=== PATIENT | female | born 1990 | race Caucasian/White ===

== ENCOUNTER 2019-07-31 16:22 | Outpatient (RCR) | payer BC, SELFPAY ==
[2019-07-31 17:32] LABS: Basophils Percent Auto 0.4 % (0.2-1.2); Eosinophils Absolute Auto 0.3 K/mm3 (0-0.3); Eosinophils Percent Auto 2.8 % (0-4.4); Hematocrit 41.3 % (37.0-47.0); Hemoglobin 13.8 g/dL (12.0-15.0); Immature Granulocyte Absolute 0.02 K/mm3 (0.00-0.031); Immature Granulocyte Percent A 0.2 % (0-0.5); Lymphocytes Absolute Auto 1.92 K/mm3 (0.9-3.2); Lymphocytes Percent Auto 21.6 % (18.3-44.2); Mean Corpuscular HGB Conc 33.4 g/dl (32-36); Mean Corpuscular Hemoglobin 30.2 pg (26-34); Mean Corpuscular Volume 90.4 fl (80-100); Mean Platelet Volume 10.2 fl (7.4-10.4); Monocytes Absolute Auto 0.6 K/mm3 (0.1-0.6); Monocytes Percent Auto 6.4 % (2.6-8.5); Neutrophils Absolute Auto 6.1 K/mm3 (1.3-6.7); Neutrophils Percent Auto 68.6 % (45.5-73.1); Platelet Count Result 288 k/mm3 (150-375); Red Blood Count 4.57 M/mm3 (4.2-5.4); Red Cell Distribution Width 12.3 % (11.5-14.5); White Blood Count 8.9 K/mm3 (4.5-10.0)
[2019-07-31 18:04] LABS: Beta HCG Quantitative < 2.39 mIU/ML
[2019-07-31 18:18] LABS: Thyroid Stimulating Hormone 0.849 uIU/mL (0.465-4.680)
[2019-08-03 01:53] LABS: Anti Cardio Antibody IgM <12 MPL (<=12); Anti Cardiolipin Antibody IgA <11 APL (<=11); Anti Cardiolipin Antibody IgG <14 GPL (<=14)
[2019-08-06 03:58] LABS: Hex Phase Conf Chg Test Yes; Lupus dRVVT 1:1 Mix Interpreta Not Indicated; Lupus dRVVT Screen 34 sec (<=45); LupusdRVVT 1:1Mix Int Chg Test Yes; PTT-LA Screen 35 sec (<=40)
[2019-08-07 11:56] LABS: Anti Nuclear Antibody Pattern Nuclear, Speckled
== END 2019-10-29 23:59 | disposition home or self-care (01) ==
LOC: ANHLAB 16:22
PROVIDERS: Visit Provider Obstetrics & Gynecology
DX: N96 Recurrent pregnancy loss (principal)
CPT/HCPCS: 36415; 81240; 81241; 83036; 84443; 84702; 85025; 85303; 85306; 85598; 85613; 85730; 86038; 86039; 86147; 86850; 86900; 86901

== ENCOUNTER 2020-04-09 10:21 | Outpatient (CLI) | payer BC, SELFPAY ==
[2020-04-09 12:27] LABS: Hematocrit 39.7 % (37.0-47.0); Hemoglobin 13.7 g/dL (12.0-15.0); Mean Corpuscular HGB Conc 34.5 g/dl (32-36); Mean Corpuscular Hemoglobin 30.7 pg (26-34); Mean Platelet Volume 9.5 fl (7.4-10.4); Platelet Count Result 322 k/mm3 (150-375); Red Blood Count 4.46 M/mm3 (4.2-5.4); White Blood Count 9.8 K/mm3 (4.5-10.0)
[2020-04-09 12:45] LABS: Glucose 1 Hour PP 50gm Dose 107 mg/dL
[2020-04-09 13:17] LABS: HIV 1/2 Ab P24 Ag Result Negative (Negative)
[2020-04-09 13:48] LABS: Hepatitis B Surface Antigen Negative (Negative)
[2020-04-10 11:20] LABS: Rapid Plasma Reagin Non-Reactive (NonReactive)
[2020-04-12 18:17] LABS: CMV IgG Antibody <0.60 U/mL (<0.60)
[2020-04-13 16:05] LABS: Varicella IgM Antibody <=0.90 (<=0.90)
== END 2020-04-09 10:22 | disposition home or self-care (01) ==
LOC: ANHLAB 10:26
PROVIDERS: PCP Family Medicine; Visit Provider Obstetrics & Gynecology
DX: N92.5 Other specified irregular menstruation (principal)
CPT/HCPCS: 36415; 82947; 84702; 85027; 86592; 86644; 86703; 86747; 86762; 86787; 86850; 86900; 86901; 87086; 87088; 87340; G0432

== ENCOUNTER 2020-08-15 21:12 | Observation (INO) | payer BC, SELFPAY ==
--- NOTE | 2020-08-15 21:12 | OBADM ---
This patient, Brooke Gonzalez, admitted to the OB room OB Post 116 for observation. Patient/family oriented to hospital policies and general routines including ID bracelet, bed and alarms, visiting hours, pain management, procedures, bathroom and other care routines, personal items, smoking policy, room service/diet, and visiting hours. Patient/Family are encouraged to report perceived risks to care and to ask questions if they do not understand what they are told or what they should do.
--- NOTE | 2020-08-15 21:30 | PC.NURSE ---
Pt states she has been feeling contractions since 1729. States contractions were initially appox 4 per house and has felt 7 last hour. Had preterml labor with two pregnancies with delivery at 36 weeks.
--- NOTE | 2020-08-15 21:30 | PC.NURSE ---
SEE OBIX DOCUMENTATION
[2020-08-15 21:34] VITALS: BP 116/78; PULSE 88
[2020-08-15 21:45] VITALS: BP 115/74; PULSE 89
[2020-08-15] MEDS: LACTATED RINGERS 1,000 ML 999 ML IV CONT (22:03)
[2020-08-15 22:15] VITALS: BP 129/72; PULSE 103
[2020-08-15 22:31] VITALS: BP 116/59; PULSE 95
[2020-08-15 22:40] LABS: Add Urine Microscopic? YES; Appearance Urine Cloudy (Clear); Bacteria Urine Trace /hpf; Bilirubin Urine Negative (Negative); Blood Urine Negative (Negative); Calcium Oxalate Crystals Urine Present /hpf; Color Urine Yellow (Yellow); Glucose Urine UA Negative (Negative); Ketones Urine Negative (Negative); Leukocyte Esterase Ur 1+ LEU/UL (NEGATIVE); Mucus Urine Rare /lpf; Nitrate Urine Negative (Negative); Protein Urine 1+ mg/dL (Negative); Specific Grav Ur 1.019 (1.001-1.035); Squamous Epithelial Cell Urine Many /hpf (Few)
[2020-08-15 22:46] VITALS: BP 111/68; PULSE 95
[2020-08-15 23:01] VITALS: BP 109/65; PULSE 89
[2020-08-15 23:20] VITALS: BMI 33.0
[2020-08-15 23:23] LABS: Fetal Fibronectin Negative
--- NOTE | 2020-08-16 00:10 | PC.NURSE ---
Pt state she is no longer feeling contractions. APpears comfortable. FFN is negative. Dr. Groves called with assessment. Will discharge home.
--- NOTE | 2020-08-20 17:56 | P.PNOB_ITS ---
OB - Triage/Final Diagnosis Visit Information Comments/Additional reasons for admission: I have assessed the risk for this patient, Brooke Gonzalez, and determined that she would benefit from observation care. Evaluation Laboratory results: Laboratory Tests 08/15/20 08/15/20 22:13 22:14 Urine Color Yellow Urine Appearance Cloudy H Urine pH 6.0 Ur Specific [place] 1.019 Urine Protein 1+ H Urine Glucose (UA) Negative Urine Ketones Negative Ur Blood (Man) Negative Urine Nitrate Negative Urine Bilirubin Negative Urine Urobilinogen 2.0 H Ur Leukocyte Esterase 1+ H Urine RBC 6-10 H Urine WBC 7-9 H Ur Squamous Epith Cells Many H Calcium Oxalate Crystal Present Urine Bacteria Trace Hyaline Casts 1-2 Urine Mucus Rare Fibronectin Negative Final Diagnosis (1) uterine contractions: Code(s): O47.9 - False labor, unspecified Status: Acute
== END 2020-08-15 23:50 | disposition home or self-care (01) ==
PROVIDERS: Admitting Provider Obstetrics & Gynecology; PCP Family Medicine; Visit Provider Obstetrics & Gynecology
DX: O47.03 False labor before 37 completed weeks of gestation, third trimester (principal); Z3A.29 29 weeks gestation of pregnancy
CPT/HCPCS: 81001; 82731; 87086; 87088; G0378; G0379; J7120

== ENCOUNTER 2020-08-20 09:25 | Outpatient (RCR) | payer BC, SELFPAY ==
[2020-08-20 10:54] LABS: Hematocrit 33.3 % (37.0-47.0); Hemoglobin 11.2 g/dL (12.0-15.0)
[2020-08-20 11:07] LABS: Glucose 1 Hour PP 50gm Dose 117 mg/dL
[2020-08-20 11:49] LABS: HIV 1/2 Ab P24 Ag Result Negative (Negative)
[2020-08-22] MEDS: RHO(D) IMMUNE GLOBULIN 300 MCG SYRINGE IM (17:41)
== END 2020-11-18 23:59 | disposition home or self-care (01) ==
LOC: ANHLAB 09:25
PROVIDERS: PCP Family Medicine; Visit Provider Obstetrics & Gynecology
DX: Z11.4 Encounter for screening for human immunodeficiency virus [HIV] (principal); Z29.13 Encounter for prophylactic Rho(D) immune globulin; O36.0120 Maternal care for anti-D [Rh] antibodies, second trimester, not applicable or unspecified; Z3A.00 Weeks of gestation of pregnancy not specified
CPT/HCPCS: 36415; 82947; 85014; 85018; 85461; 86703; 90384; 96372; G0432; J2790

== ENCOUNTER 2020-09-12 21:55 | Observation (INO) | payer BC, SELFPAY ==
[2020-09-12 22:07] VITALS: BP 121/78; PULSE 90
[2020-09-12 22:21] VITALS: TEMP 36.4
[2020-09-12 22:48] LABS: Add Urine Microscopic? YES; Appearance Urine Cloudy (Clear); Bacteria Urine Trace /hpf; Bilirubin Urine Negative (Negative); Calcium Oxalate Crystals Urine Many /hpf; Color Urine Yellow (Yellow); Glucose Urine UA Negative (Negative); Ketones Urine Negative (Negative); Leukocyte Esterase Ur 1+ LEU/UL (Negative); Mucus Urine Few /lpf; Nitrate Urine Negative (Negative); Protein Urine 1+ mg/dL (Negative); Specific Grav Ur 1.024 (1.001-1.035); Squamous Epithelial Cell Urine Many /hpf (Few)
[2020-09-12] MEDS: NIFEdipine 10 MG CAPSULE 20 MG PO (22:52)
[2020-09-12 22:54] LABS: Basophils Absolute Auto 0.1 K/mm3 (0.0-0.1); Basophils Percent Auto 0.4 % (0.2-1.2); Eosinophils Absolute Auto 0.3 K/mm3 (0-0.3); Hematocrit 30.2 % (37.0-47.0); Hemoglobin 10.6 g/dL (12.0-15.0); Immature Granulocyte Percent A 2.1 % (0-0.5); Lymphocytes Absolute Auto 2.44 K/mm3 (0.9-3.2); Lymphocytes Percent Auto 17.2 % (18.3-44.2); Mean Corpuscular HGB Conc 35.1 g/dl (32-36); Mean Corpuscular Hemoglobin 31.7 pg (26-34); Mean Corpuscular Volume 90.4 fl (80-100); Mean Platelet Volume 10.1 fl (7.4-10.4); Monocytes Percent Auto 7.2 % (2.6-8.5); Neutrophils Absolute Auto 10.1 K/mm3 (1.3-6.7); Neutrophils Percent Auto 71.1 % (45.5-73.1); Platelet Count Result 242 k/mm3 (150-375); Red Blood Count 3.34 M/mm3 (4.2-5.4); Red Cell Distribution Width 12.7 % (11.5-14.5); White Blood Count 14.2 K/mm3 (4.5-10.0)
[2020-09-12] MEDS: LACTATED RINGERS 1,000 ML 999 ML IV CONT (22:54)
[2020-09-12] MEDS: BETAMETHASONE SOD PHOS/ACETATE 30 MG/5 ML VIAL 12 MG IM (22:55)
[2020-09-12 22:58] LABS: Blood Urine Negative (Negative)
[2020-09-12 23:02] VITALS: BP 112/70; PULSE 82
[2020-09-12 23:11] LABS: Alanine Aminotransferase 10 U/L (4-35); Albumin Level 3.2 g/dL (3.5-5.1); Alkaline Phosphatase 137 U/L (38-126); Anion Gap 6 mmol/L (8-16); Aspartate Amino Transferase 20 U/L (14-36); Bilirubin,Total 0.1 mg/dL (0.2-1.3); Blood Urea Nitrogen 7 mg/dL (7-17); Calcium 8.8 mg/dL (8.4-10.2); Carbon Dioxide 23 mmol/L (22-30); Chloride 107 mmol/L (98-107); Estimated Glomerular Filt Rate > 60; Glucose 107 mg/dL (65-105); Potassium 3.4 mmol/L (3.4-5.0); Sodium 136 mmol/L (137-145)
[2020-09-12 23:21] VITALS: BMI 33.8
--- NOTE | 2020-09-12 23:21 | LDADM ---
This patient, Brooke Gonzalez, was admitted to OB Post 117 on 09/12/20 at 21:55. Plans for labor, pain management and were discussed with patient. Patient/family oriented to hospital policies and general routines including ID bracelet, bed and alarms, visiting hours, pain management, procedures, bathroom and other care routines, personal items, smoking policy, room service/diet and guest tray routines, infant security routines, and visiting hours. Patient/Family are encouraged to report perceived risks to care and to ask questions if they do not understand what they are told or what they should do. See OBIX for further documentation.
[2020-09-12 23:30] VITALS: BP 111/62; PULSE 96
[2020-09-12 23:45] VITALS: BP 104/57; PULSE 90
[2020-09-13] VITALS (35 sets, daily range): BP systolic 94–115; BP diastolic 50–71; PULSE 75–119; TEMP 36.4; O2SAT 95–100
[2020-09-13] MEDS: FAMOTIDINE 20 MG/2 ML VIAL IV PUSH ×2 (01:52→22:40)
[2020-09-13] MEDS: ACETAMINOPHEN 500 MG TABLET 1000 MG PO (01:52)
[2020-09-13] MEDS: TERBUTALINE SULFATE 1 MG/ML VIAL 0.25 MG SUB-Q (02:57)
[2020-09-13] MEDS: NIFEdipine 10 MG CAPSULE PO ×4 (04:46→22:41)
[2020-09-13] MEDS: LACTATED RINGERS 1,000 ML 125 ML IV CONT ×3 (08:29→16:35)
--- NOTE | 2020-09-13 08:51 | PM.IMHP ---
H&P: HPI History of Present Illness Date/Time: 09/13/20 08:51 30yo at 33w1d initially presented to L&D with regular contractions. She was noted to be rhianna every 3-5 minutes. Was started on nifedipine for tocolysis, given terbutaline, and betamethasone. This morning she states that she is feeling that her contractions are less frequent and less intense. Throughout the night, her contractions were decreased and was able to sleep. She does feel like her contractions are more noticeable now and feels like they are coming back. Chief Complaint: contractions [facility] Surgical History Surgical History (Updated 09/13/20 @ 09:01 by Fartun Pastor DO) H/O section H/O dilation and curettage Meds Home Medications and Allergies Home Medications Medication Instructions Recorded Confirmed Type aspirin 325 mg PO DAILY 08/15/20 08/15/20 History Allergies Allergy/AdvReac Type Severity Reaction Status Date / Time No Known Allergies Allergy Unverified 09/27/17 13:28 Vital Signs Vital Signs - 24 hr 09/12/20 22:07 09/12/20 22:21 09/12/20 23:02 Temperature 36.4 C L Pulse Rate 90 82 Blood Pressure 121/78 112/70 Pulse Oximetry 09/12/20 23:30 09/12/20 23:45 09/13/20 00:00 Temperature 36.4 C L Pulse Rate 96 90 87 Blood Pressure 111/62 104/57 L 101/56 L Pulse Oximetry 09/13/20 00:15 09/13/20 00:30 09/13/20 01:21 Temperature Pulse Rate 90 80 84 Blood Pressure 112/66 106/65 110/71 Pulse Oximetry 09/13/20 01:30 09/13/20 02:00 09/13/20 02:30 Temperature Pulse Rate 78 82 76 Blood Pressure 112/62 105/59 L 110/65 Pulse Oximetry 09/13/20 02:58 09/13/20 03:01 09/13/20 03:06 Temperature Pulse Rate 84 Blood Pressure 104/62 Pulse Oximetry 98 98 09/13/20 03:11 09/13/20 03:16 09/13/20 03:21 Temperature Pulse Rate Blood Pressure Pulse Oximetry 97 96 96 09/13/20 03:26 09/13/20 03:30 09/13/20 03:31 Temperature Pulse Rate 115 H Blood Pressure 94/50 L Pulse Oximetry 96 96 09/13/20 03:36 09/13/20 03:41 09/13/20 03:46 Temperature Pulse Rate Blood Pressure Pulse Oximetry 97 95 95 09/13/20 03:51 09/13/20 03:56 09/13/20 04:00 Temperature Pulse Rate 89 Blood Pressure 103/56 L Pulse Oximetry 95 96 09/13/20 04:01 09/13/20 04:06 09/13/20 04:11 Temperature Pulse Rate Blood Pressure Pulse Oximetry 95 96 96 09/13/20 04:16 09/13/20 04:21 09/13/20 04:26 Temperature Pulse Rate Blood Pressure Pulse Oximetry 95 96 96 09/13/20 04:30 09/13/20 04:31 09/13/20 04:36 Temperature Pulse Rate 110 H Blood Pressure 106/66 Pulse Oximetry 96 100 09/13/20 04:41 09/13/20 04:46 09/13/20 04:51 Temperature Pulse Rate Blood Pressure Pulse Oximetry 97 99 99 Exam Const: General: cooperative, healthy appearing and comfortable Resp: Effort & Inspection: normal respiratory effort Cardio: Rate: regular rate : Manual OB Exam: dilated 1 cm, effaced 50% and station high Neuro: General: oriented to person, oriented to place and oriented to time Cognition (Neuro): normal cognition Speech: normal speech Psych: Appearance: grossly normal Mental Status: mental status grossly normal Speech and movement: Normal speech and movement present Affect: normal affect Attitude: cooperative Thought content: Yes Normal thought content present Insight: Good insight present (Psych) Judgement: Good judgement present (Psych) H&P: Results Labs Labs: Short CBC 09/12/20 Range/Units 22:48 WBC 14.2 H (4.5-10.0) K/mm3 Hgb 10.6 L (12.0-15.0) g/dL Hct 30.2 L (37.0-47.0) % Plt Count 242 (150-375) k/mm3 BMP 09/12/20 22:48 Sodium 136 L Potassium 3.4 Chloride 107 Carbon Dioxide 23 BUN 7 Creatinine 0.60 L Glucose 107 H Calcium 8.8 Liver Function 09/12/20 Range/Units 22:48 Total Bilirubin 0.1 L (0.2-1.3) mg/dL AST 20 (14-36)
--- NOTE | 2020-09-13 09:04 | WPDHPUPDATE1 ---
History and Physical Update Update Date/Time: 09/13/20 09:04 History and Physical has been reviewed, including an updated exam of the patient. There are NO changes in the patient's condition. Risks, benefits, and alternatives have been discussed and questions answered. Patient agrees to proceed with procedure.
[2020-09-13] MEDS: BETAMETHASONE SOD PHOS/ACETATE 30 MG/5 ML VIAL 12 MG IM (22:42)
--- NOTE | 2020-09-14 08:40 | PM.OBTRLD ---
OB - Triage/Final Diagnosis Visit Information Comments/Additional reasons for admission: I have assessed the risk for this patient, Brooke Gonzalez, and determined that she would benefit from observation care. Evaluation Laboratory results: Laboratory Tests 09/12/20 09/12/20 09/12/20 22:29 22:48 22:48 WBC 14.2 H RBC 3.34 L Hgb 10.6 L Hct 30.2 L MCV 90.4 MCH 31.7 MCHC 35.1 RDW 12.7 Plt Count 242 MPV 10.1 Immature Gran % (Auto) 2.1 H Neut % (Auto) 71.1 Lymph % (Auto) 17.2 L [place] % (Auto) 7.2 Eos % (Auto) 2.0 Baso % (Auto) 0.4 Lymph # (Auto) 2.44 [place] # (Auto) 1.0 H Eos # (Auto) 0.3 Baso # (Auto) 0.1 Abs Immat Gran (auto) 0.30 H Absolute Neuts (auto) 10.1 H Absolute Nucleated RBC 0.0 Nucleated RBC % 0.0 Sodium 136 L Potassium 3.4 Chloride 107 Carbon Dioxide 23 Anion Gap 6 L BUN 7 Creatinine 0.60 L Estim Creat Clear Calc Not Reportable Estimated GFR > 60 Glucose 107 H Calcium 8.8 Total Bilirubin 0.1 L AST 20 ALT 10 Alkaline Phosphatase 137 H Total Protein 7.0 Albumin 3.2 L Urine Color Yellow Urine Appearance Cloudy H Urine pH 6.0 Ur Specific [place] 1.024 Urine Protein 1+ H Urine Glucose (UA) Negative Urine Ketones Negative Ur Blood (Man) Negative Urine Nitrate Negative Urine Bilirubin Negative Urine Urobilinogen 4.0 H Leukocyte Esterase Rfl 1+ H Urine RBC 6-10 H Urine WBC 10-15 H Ur Squamous Epith Cells Many H Calcium Oxalate Crystal Many Urine Bacteria Trace Urine Mucus Few H Vital signs: Vital Signs - 24 hr 09/13/20 16:40 Pulse Rate 94 Blood Pressure 115/66 Final Diagnosis (1) uterine contractions: Code(s): O47.9 - False labor, unspecified Status: Acute
== END 2020-09-13 22:55 | disposition home or self-care (01) ==
PROVIDERS: Admitting Provider Obstetrics & Gynecology; PCP Family Medicine; Visit Provider Obstetrics & Gynecology
DX: O47.03 False labor before 37 completed weeks of gestation, third trimester (principal); Z3A.33 33 weeks gestation of pregnancy
CPT/HCPCS: 36415; 80053; 81001; 85025; 87086; 87088; 96361; 96372; 96374; 96376; A9270; G0378; G0379; J0702; J3105; J7120

== ENCOUNTER 2020-09-25 22:31 | Observation (INO) | payer BC, SELFPAY ==
[2020-09-25 20:15] VITALS: BMI 34.0
--- NOTE | 2020-09-25 20:45 | PC.NURSE ---
HX PTL with this . States contractions since 1800. Rated as 5 on pain scale. Abdomen palpates soft. Denies any other symptoms. Dr. Pastor notified at 2039. Will give Terbutaline.
[2020-09-25] MEDS: TERBUTALINE SULFATE 1 MG/ML VIAL 0.25 MG SUB-Q (21:05)
--- NOTE | 2020-09-25 21:59 | OBADM ---
This patient, Brooke Gonzalez, admitted to the OB room for observation. Patient/family oriented to hospital policies and general routines including ID bracelet, bed and alarms, visiting hours, pain management, procedures, bathroom and other care routines, personal items, smoking policy, room service/diet, and visiting hours. Patient/Family are encouraged to report perceived risks to care and to ask questions if they do not understand what they are told or what they should do.
--- NOTE | 2020-09-25 22:30 | PC.NURSE ---
SEE OBIX DOCUMENTATION
--- NOTE | 2020-09-26 18:30 | PM.OBTRLD ---
OB - Triage/Final Diagnosis Visit Information Comments/Additional reasons for admission: I have assessed the risk for this patient, Brooke Gonzalez, and determined that she would benefit from observation care. Final Diagnosis (1) False labor: Code(s): O47.9 - False labor, unspecified Status: Acute
== END 2020-09-25 22:47 | disposition home or self-care (01) ==
LOC: ANHOBPP 22:31
PROVIDERS: Admitting Provider Obstetrics & Gynecology; PCP Family Medicine; Visit Provider Obstetrics & Gynecology
DX: O47.9 False labor, unspecified (principal); Z3A.00 Weeks of gestation of pregnancy not specified
CPT/HCPCS: 96372; 99199; J3105

== ENCOUNTER 2020-10-05 05:51 | Observation (INO) | payer BC, SELFPAY ==
[2020-10-05 06:41] VITALS: BMI 34.2
--- NOTE | 2020-10-05 06:41 | OBADM ---
This patient, Brooke Gonzalez, admitted to the OB room OB Post 115 for observation. Patient/family oriented to hospital policies and general routines including ID bracelet, bed and alarms, visiting hours, pain management, procedures, bathroom and other care routines, personal items, smoking policy, room service/diet, and visiting hours. Patient/Family are encouraged to report perceived risks to care and to ask questions if they do not understand what they are told or what they should do.
[2020-10-05 06:45] VITALS: BP 118/98; PULSE 82
[2020-10-05 07:16] VITALS: BP 126/67; PULSE 83
[2020-10-05] MEDS: LACTATED RINGERS 1,000 ML 999 ML IV CONT (07:18)
[2020-10-05 07:31] VITALS: BP 123/76; PULSE 79
[2020-10-05 07:46] VITALS: BP 119/79; PULSE 78
[2020-10-05] MEDS: LACTATED RINGERS 1,000 ML 150 ML IV CONT (08:20)
--- NOTE | 2020-10-07 07:21 | PM.OBTRLD ---
OB - Triage/Final Diagnosis Visit Information Reason for evaluation: threatened labor Comments/Additional reasons for admission: I have assessed the risk for this patient, Brooke Gonzalez, and determined that she would benefit from observation care.
== END 2020-10-05 10:55 | disposition home or self-care (01) ==
PROVIDERS: Admitting Provider Obstetrics & Gynecology; PCP Family Medicine; Visit Provider Obstetrics & Gynecology
DX: O47.03 False labor before 37 completed weeks of gestation, third trimester (principal); Z3A.36 36 weeks gestation of pregnancy
CPT/HCPCS: 96360; G0378; G0379; J7120

== ENCOUNTER 2020-10-08 15:30 | Outpatient (CLI) | payer BC, SELFPAY ==
[2020-10-08 16:30] VITALS: BP 114/69; PULSE 104
--- NOTE | 2020-10-08 16:44 | PC.NURSE ---
1550: ROM+ performed, negative result sve performed FT/thick/high. dr smith notified (1620) of reactive tracing, sve, rom+. may dc to home. labor precautions given, voiced understanding.
== END 2020-10-08 17:30 | disposition home or self-care (01) ==
LOC: ANHOBOP 16:26 → ANHLDR 16:26
PROVIDERS: PCP Family Medicine; Visit Provider Obstetrics & Gynecology
DX: O42.90 Premature rupture of membranes, unspecified as to length of time between rupture and onset of labor, unspecified weeks of gestation (principal); Z3A.00 Weeks of gestation of pregnancy not specified
CPT/HCPCS: 59025; 99199

== ENCOUNTER 2020-10-14 05:07 | Inpatient (IN) | payer BC, SELFPAY ==
[2020-10-14] VITALS (65 sets, daily range): BP systolic 74–129; BP diastolic 32–104; PULSE 54–299; RESP 16–18; TEMP 36.1–36.8; O2SAT 97–100; BMI 34.7; BMI 34.9
--- NOTE | 2020-10-14 05:55 | LDADM ---
This patient, Brooke Gonzalez, was admitted to Labor/Delivery/Recovery 120 on 10/14/20 at 05:07. Plans for labor, pain management and were discussed with patient. Patient/family oriented to hospital policies and general routines including ID bracelet, bed and alarms, visiting hours, pain management, procedures, bathroom and other care routines, personal items, smoking policy, room service/diet and guest tray routines, security routines, and visiting hours. Patient/Family are encouraged to report perceived risks to care and to ask questions if they do not understand what they are told or what they should do. See OBIX for further documentation.
[2020-10-14] MEDS: LACTATED RINGERS 1,000 ML 125 ML IV CONT (05:58)
--- NOTE | 2020-10-14 06:02 | P.HP_ITS ---
H&P: HPI History of Present Illness Date/Time: 30-year-old 7 para 2041 female at 3847 week prese nts with rupture of membranes. Also with irregular contractions which she has been having for weeks. History of prior section x2 and scheduled for repeat delivery next week. Also have discussed tubal ligation and she strongly desires with the understanding of permanence failure rate risk of regret and ectopic. Will proceed. Chief Complaint: Review of Systems Review of Systems: All systems reviewed & are unremarkable except as noted in HPI and below PMFSH Surgical History Surgical History H/O section H/O dilation and curettage Social History Social History Smoking status: Never smoker Second hand tobacco smoke exposure: No Substance use: never Gender identity (if verbalized by the patient): Female Sexual Orientation (if Verbalized by the Patient): Straight or Heterosexual Spiritual care concerns: No Meds Home Medications and Allergies Home Medications Medication Instructions Recorded Confirmed Type aspirin 1 tablet PO DAILY 09/25/20 10/05/20 History lansoprazole [Prevacid 24Hr] 15 mg PO DAILY 09/25/20 10/05/20 History prenat.vits,milagro,rmc-uihb-xbeot 1 tablet PO DAILY 09/25/20 10/05/20 History Allergies Allergy/AdvReac Type Severity Reaction Status Date / Time No Known Allergies Allergy Unverified 10/06/20 08:38 Vital Signs Vital Signs - 24 hr 10/14/20 05:46 10/14/20 06:00 Pulse Rate 86 83 Blood Pressure 109/43 L 118/72 Exam Resp: Effort & Inspection: normal respiratory effort Auscultation: clear to auscultation bilaterally Cardio: Rate: regular rate Rhythm: regular rhythm GI: Inspection: normal to inspection Auscultation: normal bowel sounds : External Female Exam: normal external appearance Bimanual exam- vagina & uterus: enlarged ( 38cm heart tones 140) Assessment and Plan Assessment and plan (1) 38 weeks gestation of : Code(s): Z3A.38 - 38 weeks gestation of Status: Acute (2) Previous delivery affecting : Code(s): O34.219 - Maternal care for unspecified type scar from previous delivery Status: Acute (3) Encounter for female sterilization procedure: Code(s): Z30.2 - Encounter for sterilization Status: Acute Additional Plan proceed with repeat section with bilateral tubal ligation.
[2020-10-14 06:03] LABS: Basophils Absolute Auto 0.1 K/mm3 (0.0-0.1); Basophils Percent Auto 0.5 % (0.2-1.2); Eosinophils Absolute Auto 0.2 K/mm3 (0-0.3); Eosinophils Percent Auto 1.9 % (0-4.4); Hemoglobin 10.9 g/dL (12.0-15.0); Immature Granulocyte Absolute 0.25 K/mm3 (0.00-0.031); Lymphocytes Absolute Auto 2.43 K/mm3 (0.9-3.2); Mean Corpuscular HGB Conc 34.1 g/dl (32-36); Mean Corpuscular Hemoglobin 30.8 pg (26-34); Mean Corpuscular Volume 90.4 fl (80-100); Mean Platelet Volume 10.4 fl (7.4-10.4); Monocytes Absolute Auto 0.7 K/mm3 (0.1-0.6); Monocytes Percent Auto 5.7 % (2.6-8.5); Neutrophils Absolute Auto 9.1 K/mm3 (1.3-6.7); Neutrophils Percent Auto 70.9 % (45.5-73.1); Platelet Count Result 246 k/mm3 (150-375); Red Blood Count 3.54 M/mm3 (4.2-5.4); Red Cell Distribution Width 13.1 % (11.5-14.5); White Blood Count 12.8 K/mm3 (4.5-10.0)
--- NOTE | 2020-10-14 06:06 | P.PNAN_ITS ---
Anes - Eval Pre Procedure Procedure: repeat Date/Time: 10/14/20 06:06 Surgeon: naresh Pre Op Diagnosis: Leaking Patient Data Age: 30 Gender: F Height: 1.57 m Weight: 86.5 kg Last Vital Signs Temp 36.4 C L 10/14/20 06:05 Pulse 83 10/14/20 06:00 BP 118/72 10/14/20 06:00 Allergies Allergy/AdvReac Type Severity Reaction Status Date / Time No Known Allergies Allergy Unverified 10/06/20 08:38 Home Medications Medication Instructions Recorded Confirmed Type aspirin 1 tablet PO DAILY 09/25/20 10/05/20 History lansoprazole [Prevacid 24Hr] 15 mg PO DAILY 09/25/20 10/05/20 History prenat.vits,milagro,kxz-hajl-qgdga 1 tablet PO DAILY 09/25/20 10/05/20 History Laboratory Tests 10/14/20 10/14/20 05:52 05:52 WBC Pending RBC Pending Hgb Pending Hct Pending MCV Pending MCH Pending MCHC Pending RDW Pending Plt Count Pending MPV Pending Immature Gran % (Auto) Pending Neut % (Auto) Pending Lymph % (Auto) Pending [place] % (Auto) Pending Eos % (Auto) Pending Baso % (Auto) Pending Lymph # (Auto) Pending [place] # (Auto) Pending Eos # (Auto) Pending Baso # (Auto) Pending Abs Immat Gran (auto) Pending Absolute Neuts (auto) Pending Absolute Nucleated RBC Pending Nucleated RBC % Pending RPR Pending Patient hx anesthesia problems: none Family hx anesthesia problems: none PMFSH Surgical History Surgical History H/O section H/O dilation and curettage Social History Social History Smoking status: Never smoker Second hand tobacco smoke exposure: No Substance use: never Gender identity (if verbalized by the patient): Female Sexual Orientation (if Verbalized by the Patient): Straight or Heterosexual Spiritual care concerns: No Exam Day of Procedure 10/14/20 06:06
--- NOTE | 2020-10-14 06:06 | WPDHPUPDATE1 ---
History and Physical Update Update Date/Time: 10/14/20 06:06 History and Physical has been reviewed, including an updated exam of the patient. There are NO changes in the patient's condition. Risks, benefits, and alternatives have been discussed and questions answered. Patient agrees to proceed with procedure.
[2020-10-14] MEDS: ceFAZolin 2 GM/D5W 50 ML 2 GM/50 ML BAG IVPB (06:26)
--- NOTE | 2020-10-14 07:07 | PM.OBPRVD ---
OB - Delivery Note Procedure Route of delivery: (With bilateral tubal ligation) Specimen: Yes (Fallopian tubes x2) Quantitative Blood Loss (ml): 305 Anesthesia type: Spinal Disposition: floor Narrative: Patient prepped and draped in usual manner for this procedure. Pfannenstiel incision was made which was carried down to the fascia. This incision was extended bilaterally the length of the skin incision in the peritoneum was readily entered. Bladder flap was developed uterus scored and hysterotomy incision was made with clear fluid noted. Vertex was delivered without difficulty followed by the rest of the baby cord clamped cut and placenta delivered soon manually. Membranes and clots were removed and the uterine incision was approximated 0 Monocryl running interlocking manner with good approximation hemostasis noted. Eric clamp was then used to grasp the fallopian tube and it was doubly ligated and this segment of tube was removed. Uterus was returned to the abdomen both stumps were noted be hemostatic and intact in all subfascial tissue was noted be hemostatic. Pfannenstiel was products over the lower incision was approximated using 0 Vicryl running manner to approximate the fascia and subcutaneous tissue was approximated 0 plain and therese were used to approximate skin edges at this point seizure was considered terminated patient was sent to recovery room in stable condition. [place] Baby Weeks of gestation at delivery: 38 Infant gender: Female Weight (pounds): 5 Weight (ounces): 13 score one minute: 9 score five minutes: 9
[2020-10-14 07:25] LABS: Rapid Plasma Reagin Non-Reactive (NonReactive)
[2020-10-14] MEDS: OXYTOCIN 30 UNITS/NS 500 ML 30 UNITS/500 ML BAG 125 UNITS IV CONT (07:56)
[2020-10-14] MEDS: KETOROLAC 30 MG/ML VIAL (*BKC) IV PUSH ×2 (08:26→17:11)
--- NOTE | 2020-10-14 09:35 | PC.NURSE ---
PT arrived on unit via stretcher accompanied by both spouse and infant and taken to room 277. PT transferred to bed via maxi air without difficulty. PT alert and awake and oriented to room 277. PT education and instructions one to one discussion and using mom baby care guide, No barriers to learning note. Welcome packet discussed. PT verbalized understanding of such care
--- NOTE | 2020-10-14 11:55 | PC.NURSE ---
Consult with pt., mother reports this is 3rd child to breastfeed. Mother has latched infant independently 2 times since . She denies difficulties or discomfort. Reviewed infant feeding cues, frequencies, duration of feedings, feeding elimination flow sheet, and signs of adequate intake. Reviewed waking to feed and stimulating during entire feeding to keep awake and nursing effectively is normal for the first several days, demonstrated stimulation techniques to wake infant for feeding. Nipple care reviewed. Instructed mother to call out for RN assistance if she is unable to latch infant for feeding or she has discomfort with nursing. Instructed feeding should be initiated three hours from start of last feeding or if feeding cues are noted before. Mother voiced understanding of information shared.
[2020-10-14] MEDS: DEXTROSE 5%/0.45% SOD CHL 1,000 ML 125 ML IV CONT (12:40)
[2020-10-14] MEDS: SIMETHICONE 80 MG TAB.CHEW PO ×2 (13:30→17:10)
[2020-10-14] MEDS: HYDROcodone/acetaminophen (*CRX) 5-325 MG TABLET 1 TAB PO ×3 (13:30→23:37)
[2020-10-14] MEDS: DOCUSATE SODIUM 100 MG CAPSULE PO (17:10)
[2020-10-14] MEDS: HYDROcodone/acetaminophen (*CRX) 10-325 MG TABLET 1 TAB PO (17:11)
[2020-10-14] MEDS: PANTOPRAZOLE 40 MG TABLET PO (20:28)
[2020-10-14] MEDS: IBUPROFEN 600 MG TABLET PO (23:38)
[2020-10-15 05:00] VITALS: BP 109/60; PULSE 77; RESP 16; TEMP 36.2; O2SAT 99
[2020-10-15] MEDS: IBUPROFEN 600 MG TABLET PO ×3 (05:09→19:29)
[2020-10-15] MEDS: HYDROcodone/acetaminophen (*CRX) 5-325 MG TABLET 1 TAB PO ×6 (05:09→22:47)
[2020-10-15] MEDS: SIMETHICONE 80 MG TAB.CHEW PO ×6 (05:09→22:47)
[2020-10-15 07:27] LABS: Basophils Absolute Auto 0.1 K/mm3 (0.0-0.1); Basophils Percent Auto 0.4 % (0.2-1.2); Eosinophils Absolute Auto 0.3 K/mm3 (0-0.3); Eosinophils Percent Auto 2.5 % (0-4.4); Hematocrit 28.2 % (37.0-47.0); Hemoglobin 9.3 g/dL (12.0-15.0); Immature Granulocyte Absolute 0.36 K/mm3 (0.00-0.031); Lymphocytes Absolute Auto 2.23 K/mm3 (0.9-3.2); Lymphocytes Percent Auto 18.5 % (18.3-44.2); Mean Corpuscular Hemoglobin 30.9 pg (26-34); Mean Corpuscular Volume 93.7 fl (80-100); Mean Platelet Volume 10.6 fl (7.4-10.4); Monocytes Absolute Auto 0.8 K/mm3 (0.1-0.6); Monocytes Percent Auto 6.7 % (2.6-8.5); Neutrophils Absolute Auto 8.3 K/mm3 (1.3-6.7); Neutrophils Percent Auto 68.9 % (45.5-73.1); Platelet Count Result 210 k/mm3 (150-375); Red Blood Count 3.01 M/mm3 (4.2-5.4); Red Cell Distribution Width 13.6 % (11.5-14.5)
[2020-10-15 08:00] VITALS: BP 100/61; PULSE 94; RESP 16; TEMP 36.6; O2SAT 99
[2020-10-15] MEDS: DOCUSATE SODIUM 100 MG CAPSULE PO ×2 (09:17→16:04)
[2020-10-15] MEDS: POLYSACCHARIDE IRON COMPLEX 150 MG CAPSULE PO ×2 (09:18→16:04)
[2020-10-15] MEDS: MULTIVIT/MIN/PREN/FOL AC/IRON TABLET 1 TAB PO (09:18)
--- NOTE | 2020-10-15 10:34 | WPDANLDPN2 ---
Anes-Prog Note L&D Date/Time: 10/15/20 10:34 Comfortable throughout: section Neuraxial method: spinal Epidural/Spinal procedure site: clean & non-tender Neuro status: Neuro function grossly intact. Cardiovascular status: normal Respiratory status: normal Airway patency: baseline Mental status: baseline Post-Op hydration status: normal Vital Signs: Last Vital Signs Temp 36.6 C 10/15/20 08:00 Pulse 94 10/15/20 08:00 Resp 16 10/15/20 08:00 BP 100/61 10/15/20 08:00 Pulse Ox 99 10/15/20 08:00 Pain score (VAS): 07/05 I/O: Intake & Output 10/14/20 10/15/20 10/15/20 23:59 07:59 15:59 Intake Total 1000 200 Output Total 900 1000 Balance 100 -800 Post-procedural complaints: none Patient feedback: Patient satisfied with anesthetic care.
--- NOTE | 2020-10-15 10:35 | WPDANLDNPN2 ---
Anes-Prog Note L&D-Neuraxial Date/Time: 10/15/20 10:35 Neuraxial medications: intrathecal PF morphine Opiod-related complaints: none Patient feedback: Patient satisfied with post-operative pain management.
--- NOTE | 2020-10-15 11:25 | PC.NURSE ---
Mother she is able to independently latch infant with appropriate positioning/alignment using cradle. She denies any nipple discomfort, is feeding as required and waking to feed if needed. Infant nursed eagerly, with steady draws and frequent swallowing noted. Reviewed signs of a correct latch, effective nursing and suck swallow ratio. was able to maintain latch without discomfort to mother. Nipple care reviewed. Suggested to stimulate infant while feeding to keep awake and nursing effectively for increased stimulation. increased intake and to assist with maintaining deep latch. Instructed mother to call out for RN assistance if she is unable to latch for feeding or she has discomfort with nursing Nipple care reviewed. Instructed feeding should be initiated three hours from start of last feeding or if feeding cues are noted before. Mother voiced understanding of information shared.
[2020-10-15] MEDS: TETANUS,DIPHTHERIA,AC PERTUSSIS ADULT (0.5 ML) BOOSTRIX IM (11:30)
--- NOTE | 2020-10-15 11:38 | PC.NURSE ---
I have reviewed the SN for [facility] work and agree with the assessment.
--- NOTE | 2020-10-15 13:27 | P.PNOB_ITS ---
OB - PN: Subj Subjective Date/time seen: 10/15/20 13:27 Pain well controlled. Diet/ambulation/void ok. No concerns. OB - PN: Obj Data Labs CBC & Chem 7: 10/15/20 05:22 Labs: Laboratory Results - last 24 hr 10/15/20 05:22 WBC 12.0 H RBC 3.01 L Hgb 9.3 L Hct 28.2 L MCV 93.7 MCH 30.9 MCHC 33.0 RDW 13.6 Plt Count 210 MPV 10.6 H Immature Gran % (Auto) 3.0 H Neut % (Auto) 68.9 Lymph % (Auto) 18.5 [place] % (Auto) 6.7 Eos % (Auto) 2.5 Baso % (Auto) 0.4 Lymph # (Auto) 2.23 [place] # (Auto) 0.8 H Eos # (Auto) 0.3 Baso # (Auto) 0.1 Abs Immat Gran (auto) 0.36 H Absolute Neuts (auto) 8.3 H Absolute Nucleated RBC 0.0 Nucleated RBC % 0.0 OB - PN A/P Assessment and Plan (1) Postop check: Code(s): Z09 - Encounter for follow-up examination after completed treatment for cond itions other than malignant neoplasm Status: Acute Assessment and Plan: Continue with routine /postop care. Time Spent With Patient Time: Total time spent is greater than 50% in coordination of care (as documented) at patient's floor/unit and/or counseling patient: Exam GI: Inspection: incision (with dressing/clean)
[2020-10-15] MEDS: PANTOPRAZOLE 40 MG TABLET PO (19:29)
[2020-10-15 19:36] VITALS: BP 107/66; PULSE 92; RESP 16; TEMP 36.8; O2SAT 100
[2020-10-16] MEDS: HYDROcodone/acetaminophen (*CRX) 5-325 MG TABLET 1 TAB PO ×3 (02:20→13:19)
[2020-10-16] MEDS: IBUPROFEN 600 MG TABLET PO ×2 (02:21→13:19)
[2020-10-16 07:35] VITALS: BP 107/64; PULSE 86; RESP 16; TEMP 36.8; O2SAT 100
[2020-10-16] MEDS: MULTIVIT/MIN/PREN/FOL AC/IRON TABLET 1 TAB PO (09:15)
[2020-10-16] MEDS: DOCUSATE SODIUM 100 MG CAPSULE PO (09:15)
[2020-10-16] MEDS: POLYSACCHARIDE IRON COMPLEX 150 MG CAPSULE PO (09:15)
[2020-10-16] MEDS: BENZOCAINE/MENTHOL (*BKC) 18 EA LOZENGE 1 LOZENGE PO (09:16)
[2020-10-16] MEDS: HYDROcodone/acetaminophen (*CRX) 10-325 MG TABLET 1 TAB PO (09:16)
--- NOTE | 2020-10-16 10:10 | PC.NURSE ---
Mother called out for assist with latching. Mother reports infant has been eagerly latching without issue. This feeding is fussy and struggling to latch. Mother states her milk is coming in. Reviewed infants freq. react this way once milk transitions in due to nipple firmness. Suggested to self express to soften and start milk flow before attempt latch. This worked well was able to latch. Mother is able to independently latch with appropriate positioning/alignment. She denies any nipple discomfort, is feeding as required and waking to feed if needed. Infant has had at least 8 effective feedings in the past 24 hours, and is currently meeting outcomes for weight, output, jaundice and feeding frequencies. Mother states she feels confident to continue effective at home. Reviewed transition to breast milk, signs of adequate intake, and engorgement/relief. Instructed to call ICP if intake/output less than required. Reviewed regular medications mother is taking. Information provided per Kayla. Reviewed community resources on the [facility] website and in the Mom/Baby guide. Information on outpatient services provided. Mother has no further questions at this time.
[2020-10-16 10:30] VITALS: PULSE 86; RESP 16; O2SAT 100
--- NOTE | 2020-10-16 13:09 | PM.OBDSVD ---
DS: Admitting Diagnosis Admitting Diagnosis Admitting Diagnosis: DS: Discharge Diagnosis Discharge Diagnosis (1) Postop check: Code(s): Z09 - Encounter for follow-up examination after completed treatment for conditions other than malignant neoplasm Status: Acute OB - DS: Summary OB Procedures : None OB Procedures Intrapartum: and Tubal ligation OB Procedures: : None Peripartum Data Procedures: Procedures Operation Date: 10/14/20 06:30 Actual Procedures Side Surgeon p Section Reinier Grover MD Time Spent with Patient Time attestation: Total time spent providing and/or coordinating discharge services: DS: Data Data Completed and Pending Pending studies at discharge: Pending at discharge 10/14/20 07:33 Surgical [PTH] Routine Discharge Plan Discharge Discharging Clinician: Reinier Grover Anticipated Discharge Date/Time: 10/16/20 13:09 Patient Disposition: Home, Self-Care Activity: as tolerated Diet: as tolerated Wound Care Instructions: incision open to air Discharge Instructions: Education: Mom and Baby Guide Given to: Mother Follow-Up: Call your delivering provider's office for an appointment to be seen in: 3 Weeks Mom and baby should come to the [facility] for the follow-up appointment. Appointment Date/Time: Saturday, October 17, 2020 at 10:00 am What to expect at your follow-up visit: Blood Pressure Check Physical Assessment Call [phone] if you are unable to keep your appointment time. BREAST CARE: * Wear a snug supportive bra. * For engorgement discomfort: Breast Feeding: * Apply warm moist washcloths * Express milk as needed to relieve engorgement * Wear loose clothing * For sore nipples: * Identify correct latch-on * Apply warm moist washcloths before and after nursing * Air dry nipples after nursing * May apply Lansinoh cream to nipples ABDOMINAL INCISION: (if applicable) * Allow incision to air dry * Do NOT use lotions for powders on your incision * When showering, allow soap and water to run over the incision, but do not wash incision EPISIOTOMY/PERINEAL CARE: * Until bleeding stops, use your fiona bottle after urinating * Change your pad frequently throughout the day * You may take sitz baths several times a day (fill your bathtub with warm water and soak for 20 minutes.) Do NOT bathe in the water * No tub baths until seen by your physician - You may shower ACTIVITY: * Rest as much as possible. * Do not exercise or lift anything heavier than your baby (such as laundry or other children.) * Avoid stairs or driving as much as possible. * Do not put anything into the vagina. No douching, tampons, or sexual activity until seen by physician. NOTIFY PHYSICIAN IF YOU HAVE ANY QUESTIONS OR IF ANY OF THE FOLLOWING SYMPTOMS OCCUR: * If your incision becomes red, swollen, or more painful than what you have experienced in the hospital. * If your vaginal bleeding becomes foul smelling. * If your vaginal bleeding becomes more heavy than a period or if your bleeding changes from pink to bright red. However, you may pass an occasional walnut-sized clot once or twice for the first week . * If you experience a sharp, shooting pain in your calves. * If you discover a hard, reddened area on your breast or if you experience flu-like symptoms. DIET: * Eat regular, well-balanced meals. * Drink plenty of fluids daily. If , drink to thirst. Patient Instructions: Antibiotic Form Stand Alone Forms: General Discharge Information Follow-up/Referrals: Reinier Grover MD [Physician] - 3 Weeks Discharge Medications: New hydrocodone-acetaminophen 5-325 mg Tablet 1 tablet PO Q3H PRN (Reason: Moderate Pain (4-6)) Qty: 20 RF: 0 ibuprofen 600 mg Tablet 600 m
[2020-10-16] MEDS: SIMETHICONE 80 MG TAB.CHEW PO (13:19)
[2020-10-17 10:10] VITALS: BP 118/81; PULSE 87; RESP 16; TEMP 36.6; O2SAT 99
== END 2020-10-16 14:23 | disposition home or self-care (01) | DRG 785 ==
LOC: ANHLDR 05:42 → ANHOB2 10:29
PROVIDERS: Admitting Provider Obstetrics & Gynecology; PCP Family Medicine; Visit Provider Obstetrics & Gynecology
PROC: 10D00Z1 Extraction of Products of Conception, Low, Open Approach (ICD-10-PCS; CPT 59514; principal; 2020-10-14 06:30)
DX: O34.211 Maternal care for low transverse scar from previous cesarean delivery (principal); Z37.0 Single live birth; Z3A.37 37 weeks gestation of pregnancy; Z30.2 Encounter for sterilization
CPT/HCPCS: 36415; 84112; 85025; 86592; 86850; 86900; 86901; 88302; 90715; A9270; J0131; J0690; J1885; J2274; J2590; J7120

== ENCOUNTER 2023-07-18 15:31 | Emergency (ER) | payer BC, SELFPAY ==
[2023-07-18 15:40] VITALS: BP 123/62; PULSE 76; RESP 20; TEMP 37.1; O2SAT 100
--- NOTE | 2023-07-18 16:17 | ED.SKABFB ---
HPI - Skin/Abscess/Foreign Bdy General Chief complaint: Skin/Abscess/Foreign Body Stated complaint: Rash/skin irritation Time Seen by Provider: 07/18/23 16:05 Source: patient, RN notes reviewed and old records reviewed Mode of arrival: ambulatory Limitations: no limitations History of Present Illness HPI narrative: 32 year old female who presents to [facility] care with complaints of scattered scaly itchy rash which initially started on her legs which is now also on her arms. Patient reports no known new foods, medications, laundry soap, body lotions body soaps or any other new products. Patient reports that no one else in household has rash.Has been using Benadryl, hydrocortisone and moisturizing lotions. Patient denies any fevers or any other ill symptoms. MD complaint: rash Onset (ago): week(s) (2 and has been spreading onto arms now) Location: generalized, LUE, RUE, LLE and RLE Severity: moderate Treatments prior to arrival: Benadryl and other (hydrocortisone and moisturizing lotions) Related Data Allergies Allergy/AdvReac Type Severity Reaction Status Date / Time No Known Allergies Allergy Unverified 07/18/23 15:55 Review of Systems Review of Systems: CONSTITUTIONAL: Denies fever, chills, or sweats. CARDIOVASCULAR: Denies chest pain, palpitations, or edema. RESPIRATORY: Denies cough or dyspnea. SKIN: Reports rash for 2 weeks to legs and now to arms bilateral, is itchy MUSCULOSKELETAL: Denies joint pain or myalgia. NEUROLOGIC: Denies headache, numbness, or weakness. All systems reviewed & are unremarkable except as noted in HPI and below PMFSH Past Medical History Medical History (Updated 07/19/23 @ 12:59 by Daysi Medina NP) Anxiety and depression Surgical History Surgical History (Updated 07/19/23 @ 13:04 by Daysi Medina NP) H/O section H/O dilation and curettage H/O tubal ligation History of carpal tunnel surgery [facility] teeth extracted Social History Social History Smoking status: Never smoker Second hand tobacco smoke exposure: No Substance use: never Gender identity (if verbalized by the patient): Female Sexual Orientation (if Verbalized by the Patient): Straight or Heterosexual Spiritual care concerns: No Comments At time of signature, agree with nursing past medical, surgical, social and family history. There is no relevant family history pertinent to the presenting complaint Exam Narrative: GENERAL: Well-appearing, well-nourished, and in no acute distress. HEAD: Normocephalic, atraumatic. EYES: PERRLA, conjunctivae clear, and EOMI. ENT: Mucous membranes moist. Oropharynx without edema, erythema or lesions. NECK: Supple. No lymphadenopathy CHEST: Clear to auscultation. No respiratory distress.SAO2 100% on room air HEART: Regular rate and rhythm. SKIN: Warm, dry.? scattered rash to legs, arms which is itchy scaly in appearance NEURO:? Alert and oriented x3. PSYCH: Normal mood and affect Course Course Emergency Course: Patient is aware of diagnosis, understands and agrees to treatment plan.? Anticipatory guidance given.? Patient agrees to follow-up as directed and is aware of reasons to seek care at the emergency department. Portions of this record may have been created with voice recognition software Level of Care: Express Care Visit Vital Signs Vital signs: Vital Signs Temperature 37.1 C 07/18/23 15:40 Pulse Rate 76 07/18/23 15:40 Respiratory Rate 20 07/18/23 15:40 Blood Pressure 123/62 07/18/23 15:40 Pulse Oximetry 100 07/18/23 15:40 Oxygen Delivery Room Air 07/18/23 15:40 Temperature 37.1 C 07/18/23 15:40 Pulse Rate 76 07/18/23 15:40 Respiratory Rate 20 07/18/23 15:40 Blood Pressure 123/62 07/18/23 15:40 Pulse Oximetry 100 07/18/23 15:40 Oxygen Delivery Room Air 07/18/23 15:40 Reviewed MDM - Skin/Abscess/Foreign Jose Eduardo Richardson
== END 2023-07-18 16:35 | disposition home or self-care (01) ==
PROVIDERS: Emergency Provider Registered Nurse; PCP Family Medicine
DX: R21 Rash and other nonspecific skin eruption (principal)
CPT/HCPCS: 99213; G0463

== ENCOUNTER 2023-08-21 14:20 | Emergency (ER) | payer BC, SELFPAY ==
[2023-08-21 14:28] VITALS: BP 136/89; PULSE 82; RESP 14; TEMP 36.5; O2SAT 100
--- NOTE | 2023-08-21 14:43 | ED.GENADULT ---
HPI - General Adult General Chief complaint: Skin/Abscess/Foreign Body Stated complaint: Rash Source: patient, RN notes reviewed and old records reviewed Mode of arrival: ambulatory Limitations: no limitations History of Present Illness HPI narrative: 33-year-old female presents to [place] [id number] with puretic rash to arms, legs, back. Patient states rash started approximately 1 month ago patient was seen here and states rash improved but never went 100% away. Patient states has an appoint with her primary care physician but can not get in until the end of August. Patient states cannot see dermatology without PCP referral. Related Data Allergies Allergy/AdvReac Type Severity Reaction Status Date / Time No Known Allergies Allergy Unverified 07/18/23 15:55 Review of Systems Constitutional: Constitutional: Reports no additional constitutional complaints, Denies body ache(s), Denies chills, Denies fatigue, Denies fever(s) and Denies headache(s) Eyes: Eyes: Reports no additional eye complaints and Denies blurry vision ENT: Reports system reviewed and no additional complaints, except as documented, Denies vertigo, Denies dizziness, Denies ear discharge, Denies otalgia, Denies facial pain, Denies headache(s), Denies nasal congestion, Denies nasal discharge, Denies sinus pain, Denies sinus pressure and Denies sore throat Cardiovascular: Cardiovascular: Reports no additional cardiovascular complaints, Denies chest pain, Denies chest pain at rest, Denies rapid heart rate and Denies dyspnea Respiratory: Respiratory: Reports no additional respiratory complaints, Denies chest congestion, Denies cough, Denies pain on inspiration, Denies pain with cough and Denies dyspnea Gastrointestinal: Gastrointestinal: Denies abdominal pain, Denies diarrhea, Denies nausea and Denies vomiting Integumentary/Breasts: Skin/Breast: Reports rash Neurologic: Reports system reviewed and no additional complaints, except as documented, Denies vertigo, Denies dizziness and Denies headache(s) Endocrine: Endocrine: Denies fatigue PMFSH Past Medical History Medical History Anxiety and depression Surgical History Surgical History H/O section H/O dilation and curettage H/O tubal ligation History of carpal tunnel surgery [facility] teeth extracted Social History Social History Smoking status: Never smoker Second hand tobacco smoke exposure: No Substance use: never Gender identity (if verbalized by the patient): Female Sexual Orientation (if Verbalized by the Patient): Straight or Heterosexual Spiritual care concerns: No Comments At the time of my signature, I reviewed and agree with the nursing past medical, surgical, social, and family history. There is no relevant family history pertinent to the patient complaint. Exam Const: General: cooperative, healthy appearing, no acute distress and well nourished Nutritional Appearance: well nourished Orientation/consciousness: patient oriented x3 Limitations: no limitations HENMT: Head: normal to inspection and normocephalic Ears: external ears normal, TM's normal bilaterally, mastoids normal and Abnormal EAC present Face/Nose/Sinus: normal facial exam Face and sinus: normal facial exam Mouth: Yes Normal oral and palatal mucosa present, Yes oropharynx normal and Yes moist mucous membranes Throat: tonsils normal, uvula midline and no uvular edema Eyes: General: appearance normal, both eyes and all related structures Sclera: sclerae normal Pupils: Equal, round and reactive pupils present Resp: Effort & Inspection: normal respiratory effort, able to speak in complete sentences, no audible wheezes, no cough, no respiratory distress and no retractions Skin: Other: Macular papular rash noted to bilateral feet with pubic area r
== END 2023-08-21 14:51 | disposition home or self-care (01) ==
PROVIDERS: Emergency Provider Registered Nurse; PCP Family Medicine
DX: L25.9 Unspecified contact dermatitis, unspecified cause (principal)
CPT/HCPCS: 99213; G0463